=== PATIENT | female | born 1970 | race Caucasian/White ===

== ENCOUNTER 2020-09-20 22:56 | Emergency (ER) | payer OTHER ==
[~2020-09-20] VITALS: Ht 162.6 cm; Wt 99.8 kg
[~2020-09-20 22:56] MED LIST: CIPRO500 MG PO; NAPROSYN500 MG PO
[2020-09-20] MEDS ORDERED: NORCO5 PO (23:28)
[2020-09-20] MEDS ORDERED: CLEOCIN HCL300 MG PO (23:28)
[2020-09-20 23:52] VITALS: BP 108/71
== END 2020-09-20 23:53 | disposition home or self-care (01) ==
LOC: ER 22:56
DX: K02.9 Dental caries, unspecified (principal); R22.0 Localized swelling, mass and lump, head; F17.210 Nicotine dependence, cigarettes, uncomplicated; Z79.1 Long term (current) use of non-steroidal anti-inflammatories (NSAID); Z88.8 Allergy status to other drugs, medicaments and biological substances

== ENCOUNTER 2021-05-23 12:51 | Inpatient (IN) | payer OTHER ==
[~2021-05-23] VITALS: Ht 162.6 cm; Wt 76.2 kg
[~2021-05-23 12:51] MED LIST changes: +CLEOCIN HCL300 MG PO; +NORCO5 PO
[2021-05-23 13:03] VITALS: BP 129/85
[2021-05-23 13:45] LABS: ABSOLUTE NEUTROPHILS 11.1 thou/uL (1.4-8.2); BASOPHILS 0.5 % (0.0-2.0); EOSINOPHILS 3.2 % (0.0-3.0); HEMATOCRIT 40.1 % (37.0-47.0); HEMOGLOBIN 13.6 gm/dL (12.0-15.0); LYMPHOCYTES 13.8 % (24.0-44.0); MCH 30.4 pg (26.0-34.0); MCHC 33.9 g/dL (28.0-37.0); MCV 89.7 fL (80.0-100.0); MONOCYTES 8.7 % (1.0-8.0); PLATELET COUNT 349 thou/uL (150-400); POLYS 73.8 % (36.0-66.0); RBC 4.48 mil/uL (4.20-5.00); RDW 14.2 % (10.5-14.5)
[2021-05-23 14:36] LABS: CALCIUM 9.2 mg/dL (8.5-10.1); CREATININE 0.8 mg/dL (0.6-1.0); POTASSIUM 3.5 mmol/L (3.5-5.1)
[2021-05-23 14:40] LABS: ALBUMIN 3.1 g/dL (3.4-5.0); TOTAL BILIRUBIN 0.3 mg/dL (0.2-1.0)
[2021-05-23 16:51] VITALS: BP 141/92
[2021-05-23 17:15] VITALS: BP 113/73
[2021-05-23 20:02] VITALS: BP 124/72
--- NOTE | 2021-05-24 02:41 | NUR ---
PT CARE ASSUMED WITH PT IN BED RESTING.PT IS A/O X4.PT IS UP AD ASHISH.PT DRESSING OF LT BREAST AND LFA AND BRIANNE IN PLACE.PT C/O PAIN AND PAIN MANAGED WITH X1 DOSE FENTANYL WITH MUCH RELIEF.PT IS ON ROOM AIR.IV ACCESS ON RT BREAST.WILL CONTINUE TO MONITOR PER POC
[2021-05-24 09:06] VITALS: BP 119/80
--- NOTE | 2021-05-24 09:36 | NUR ---
Patient asked the staff to change her dressing, the staff agreed to do that, at the exactly the same time, the patient became very angry because her vancomycin was scheduled at 1400, she said, "I have kids at home, why no doctor came to see me, no surgon came to see me, why anbiotics will not begin until 2(pm). i am leaving." i explained to her about the infection would be worse if she left without treatment, she just put on the clothes,saying that she had asked to get her dressing changed at 6am but nobody changed her dressing. The staff did not get the information from the shift report about the dressing change, the staff agreed to have the dressing changed the first time when the patient mentioned it. Dr. Farooq was notified, patient refused to wait until any response. Dr. Morales was notified in person about the AMA at 9:42am after patient left. AMA was signed by the patient.
--- NOTE | 2021-05-24 09:45 | NUR ---
the staff did not get the chance to assess the patient before the patient left.
== END 2021-05-24 09:30 | disposition left against medical advice (07) | DRG 601 ==
LOC: ER 12:51 → EROBS 14:59 → 4W 16:51
PROVIDERS: Nurse Practitioner; ADMIT Hospitalist; ATTEND Hospitalist
DX: N61.0 Mastitis without abscess (principal); F17.210 Nicotine dependence, cigarettes, uncomplicated; N61.1 Abscess of the breast and nipple; Z53.29 Procedure and treatment not carried out because of patient's decision for other reasons; Z20.822 Contact with and (suspected) exposure to COVID-19
CPT/HCPCS: 10040